=== PATIENT | male | born 1935 | race Caucasian/White ===

== ENCOUNTER 2020-11-08 12:08 | Emergency (ER) | payer MEDICARE, OTHER ==
--- NOTE | 2020-11-08 12:50 | EDM.PDOC ---
ED HPI GENERAL MEDICAL PROBLEM - General Chief Complaint: General Stated Complaint: SYNCOPE Time Seen by Provider: 11/08/20 12:46 Source of Information: Reports: Patient, Family (spouse) History Limitations: Reports: Physical Impairment - History of Present Illness INITIAL COMMENTS - FREE TEXT/NARRATIVE: 85-year-old male presents to the ED in the accompaniment of his and jak kyle. They are concerned due to his generalized decline in level of function over the last several months. They estimate he is lost 20 pounds of weight over the last 3 months. Poor appetite. Legs seem to be getting weaker. He is experiencing a combination of what I believed to be orthostatic hypotension as he gets dizzy lightheaded particularly when sitting up and trying to get out of bed. He then becomes dizzy lightheaded and vertiginous when walking down the hallway and bumps into the wall. Usually gets around with a cane in the house. He does have a walker but rarely uses it as the doors are fairly narrow and it is difficult to navigate with the walker in the house. He denies any nausea or vomiting. His only medication is Flomax 0.4 mg once daily which he takes in the morning for his prostate. It could also of course work as an alpha-cody and drop his blood pressure. No other medications have been utilized. He has not fallen per se. He had a bad fall 2 years ago down the basement stairs but no falls on the last several of months. He leans up against the wall until the dizzy spell dissipates. He does not wear hearing aids but is very hard of hearing. He is alert oriented and answers in a very quiet voice. He answers all questions appropriately. Onset: Gradual, Unknown/Unsure (Symptoms been coming and going off and on for the last 2 to 3 weeks where he will become I believe vertiginous while walking down the hallway and bumped into a wall. He is also lightheaded dizzy upon his assuming the standing position from the sitting or lying down position suggesting orthostatic h) Duration: Week(s):, Chronic, Getting Worse Location: Reports: Generalized (Generalized sense of vertigo and lightheadedness and dizziness that the can occur at any time. The does not appreciate that he is worse in the morning after taking his tamsulosin.) Quality: Reports: Other (Weakness in the lower extremities with loss of balance and what I interpret as a vertigo with a component of orthostatic hypotension as well.) Severity: Moderate Improves with: Reports: Rest Worsens with: Reports: Movement Context: Denies: Activity, Exercise, Lifting, Sick Contact, Trauma, Other Associated Symptoms: Reports: Cough, Loss of Appetite (20 pound weight loss), Malaise, Weakness. Denies: No Other Symptoms (Symptoms have occurred with movement.), Confusion (Cough), Chest Pain, cough w sputum, Diaphoresis, Fever/Chills, Headaches, Nausea/Vomiting, Rash, Seizure, Shortness of Breath, Syncope Treatments [employer]: Reports: Other (see below) (Rarely uses Tylenol.) - Related Data Allergies Allergy/AdvReac Type Severity Reaction Status Date / Time No Known Allergies Allergy Verified 06/20/18 18:55 Home Meds: Home Meds Tamsulosin [Flomax] 0.4 mg PO DAILY 06/17/18 [History] Dutasteride [Avodart] 0.5 mg PO DAILY #30 cap 11/08/20 [Rx] Past Medical History HEENT History: Reports: Hard of Hearing (Not wear hearing aids.), Macular Degeneration Cardiovascular History: Reports: SOB on Exertion Gastrointestinal History: Reports: GERD Genitourinary History: Reports: Other (See Below) Other Genitourinary History: enlarged prostate Oncologic (Cancer) History: Reports: Other (See Below) Other Oncologic History: skin - Past Surgical History HEENT Surgical History: Reports: Cataract Surgery, Tonsillectomy GI Surgical History: Reports: Hernia Repair/Other Male Surgical History: Reports: Other (See Below) Other Male Surgeries/Procedures: enlarged prostate Dermatological Surgical History: Reports: Skin Graft Social & Family History - Tobacco Use Tobacco Use Status *Q: Never Tobacco User - Caffeine Use Caffeine Use: Reports: Coffee, Soda - Recreational Drug Use Recreational Drug Use: No - Living Situation & Occupation Living situation: Reports: Occupation: Retired ED ROS GENERAL - Review of Systems Review Of Systems: See Below Constitutional: Reports: Malaise, Weakness, Fatigue, Decreased Appetite (20 pounds reported by the over the last 3 months), Weight Loss (Estimated 20 pound weight loss over the last 3 months.). Denies: Fever, Chills HEENT: Reports: Hearing Loss Respiratory: Reports: Shortness of Breath. Denies: Wheezing, Pleuritic Chest Pain, Cough, Sputum Cardiovascular: Reports: Dyspnea on Exertion, Lightheadedness (Combination of vertigo and orthostatic hypotension by history). 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 Denies: Confusion, Headache, Numbness, Pre-Existing Deficit, Seizure, Syncope, Tingling, Tremors, Trouble Speaking, Change in Speech ( Especially lower extremities) Psychiatric: Reports: No Symptoms Hematologic/Lymphatic: Reports: No Symptoms Immunologic: Reports: No Symptoms ED EXAM, GENERAL - Physical Exam Exam: See Below Exam Limited By: No Limitations General Appearance: Alert, WD/WN, No Apparent Distress, Other (Patient has had previous blepharoplasty. Temperature is 36.6 degrees. Heart rate is 77 and sinus respiratory is 20 with O2 sats of 98% on room air BP 130/77) Eye Exam: Bilateral Eye: Normal Inspection, PERRL (No blepharal pallor or scleral icterus.) Ears: Other (Is a fair amount of dry crumbly cerumen in both ear canals and I can only visualize a very small portion of the tympanic membrane which looks normal. It could be causing some vertigo symptoms and will be irrigated out.) Throat/Mouth: Other (Tongue is mildly dry and coated. He has had previous tonsillectomy.) Head: Atraumatic ( No oropharyngeal erythema), Normocephalic, Other Neck: Normal Inspection, Limited Range of Motion (No outward signs of head or neck trauma. Limited), Tender Lateral ( lateral rotation and flexion of his neck due to osteoarthritic change. Crepitus present on exam). No: Supple, Non- Tender, Full Range of Motion, Carotid Bruit, Lymphadenopathy (L), Lymphadenopathy (R) Respiratory/Chest: No Respiratory Distress, Lungs Clear, Normal Breath Sounds, No Accessory Muscle Use, Decreased Breath Sounds (Breath sounds are diminished to the lower 30% lung washburn bilaterally without adventitial sounds.) Cardiovascular: Regular Rate, Rhythm, No Edema, No Gallop, No Murmur, No Rub. No: Normal Peripheral Pulses Peripheral Pulses: 1+: Posterior Tibial (L), Posterior Tibial (R), Dorsalis Pedis (L), Dorsalis Pedis (R), 2+: Carotid (L), Carotid (R) GI/Abdominal: Normal Bowel Sounds, Soft, Non-Tender, No Organomegaly, No Mass, Pelvis Stable (Male) Exam: Hernia (She has a large right-sided inguinal hernia that sometimes will travel all the way down into the scrotum. At present it is not painful and does not contain bowel sounds.) Back Exam: Decreased Range of Motion, Other. No: CVA Tenderness (L), CVA Tenderness (R) Extremities: Joint Swelling (Knees are deformed due to osteoarthritic changes. He has very limited external and internal rotation of either hip can put with severe arthritis in his hips.), Other (He does exhibit atrophy of the musculatur e of his lowers extremities.). No: Pedal Edema Neurological: Alert, Oriented, CN II-XII Intact, Normal Cognition Psychiatric: Flat Affect Skin Exam: Warm, Dry, Intact, Normal Color, No Rash #1 Interpretation EKG Date: 11/08/20 Time: 13:17 Rhythm: NSR Rate (Beats/Min): 68 Aguirre: Normal P-Wave: Present QRS: Other (Early R wave transition V2 consider right ventricular perjury versus septal hypertrophy pattern.) ST-T: Other (Diffuse early repolarization pattern which skews the ST segment V4 to V6 slightly upwards but there is no true ischemia. Nonspecific T wave flattening aVL) EKG Interpretation Comments: Borderline ECG Course - Vital Signs Last Recorded V/S: Last Vital Signs Temp 36.6 C 11/08/20 12:23 Pulse 77 11/08/20 12:23 Resp 20 11/08/20 12:23 BP 130/77 11/08/20 12:23 Pulse Ox 98 11/08/20 12:23 Orthostatic Blood Pressure [ 87/52 Standing] Orthostatic Blood Pressure [ 113/56 Sitting] Orthostatic Blood Pressure [ 105/49 Supine] - Orders/Labs/Meds Orders: Active Orders 24 hr Category Date Time Status EKG Documentation Completion [RC] STAT Care 11/08/20 12:47 Active Ear Irrigation [RC] ASDIRECTED Care 11/08/20 12:49 Active Orthostatic Vital Signs [RC] ASDIRECTED Care 11/08/20 12:46 Active URINALYSIS W/MICROSCOPIC [UA W/MICROSCOPIC] [URIN] Stat Lab 11/08/20 16:08 Received Dextrose 5%-0.9% NaCl [Dextrose 5%-Normal Saline] 1,000 Med 11/08/20 13:00 Active ml IV ASDIRECTED Medication Orders Dextrose/Sodium Chloride (Dextrose 5%-Normal Saline) 1,000 mls @ 100 mls/hr IV ASDIRECTED MICHAEL Last Admin: 11/08/20 13:15 Dose: 100 mls/hr Documented by: BARRY Labs: Laboratory Tests 11/08/20 11/08/20 11/08/20 Range/Units 13:02 13:02 13:02 WBC 5.33 (4.23-9.07) K/mm3 RBC 4.16 L (4.63-6.08) M/mm3 Hgb 13.3 L (13.7-17.5) gm/dl Hct 40.8 (40.1-51.0) % MCV 98.1 H D (79.0-92.2) fl MCH 32.0 (25.7-32.2) pg MCHC 32.6 (32.2-35.5) g/dl RDW Std Deviation 47.4 H (35.1-43.9) fL Plt Count 269 (163-337) K/mm3 MPV 9.8 (9.4-12.3) fl Neut % (Auto) 68.6 H (34.0-67.9) % Lymph % (Auto) 20.5 L (21.8-53.1) % Armstrong % (Auto) 8.6 (5.3-12.2) % Eos % (Auto) 1.3 (0.8-7.0) Baso % (Auto) 0.8 (0.1-1.2) % Neut # (Auto) 3.66 (1.78-5.38) K/mm3 Lymph # (Auto) 1.09 L (1.32-3.57) K/mm3 Armstrong # (Auto) 0.46 (0.30-0.82) K/mm3 Eos # (Auto) 0.07 (0.04-0.54) K/mm3 Baso # (Auto) 0.04 (0.01-0.08) K/mm3 Sodium 143 (136-145) mEq/L Potassium 3.9 (3.5-5.1) mEq/L Chloride 105 (98-107) mEq/L Carbon Dioxide 30 (21-32) mEq/L Anion Gap 11.9 (5-15) BUN 17 (7-18) mg/dL Creatinine 1.0 (0.7-1.3) mg/dL Est Cr Clr Drug Dosing 45.27 mL/min Estimated GFR (MDRD) > 60 (>60) mL/min BUN/Creatinine Ratio 17.0 (14-18) Glucose 147 H (83-115) mg/dL Calcium 8.8 (8.5-10.1) mg/dL Magnesium 2.0 (1.8-2.4) mg/dl Total Bilirubin 0.7 (0.2-1.0) mg/dL AST 15 (15-37) U/L ALT 19 (16-63) U/L Alkaline Phosphatase 46 (46-116) U/L Troponin I < 0.017 (0.00-0.056) ng/mL C-Reactive Protein < 0.2 (<1.0) mg/dL NT-Pro-B Natriuret Pep 246 (0-450) pg/mL Total Protein 6.8 (6.4-8.2) g/dl Albumin 3.5 (3.4-5.0) g/dl Globulin 3.3 gm/dL Albumin/Globulin Ratio 1.1 (1-2) TSH 3rd Generation 0.872 (0.358-3.74) uIU/mL Meds: Medications Generic Name Dose Route Start Last Admin Trade Name Freq PRN Reason Stop Dose Admin Dextrose/Sodium Chloride 1,000 mls @ 100 mls/hr 11/08/20 13:00 11/08/20 13:15 Dextrose 5%-Normal Saline IV 100 mls/hr ASDIRECTED MICHAEL Administration - Radiology Interpretation Free Text/Narrative:: 5-year-old male presents to the ED for evaluation of generalized weakness in the lower extremities. Associated I believe combination of vertigo and orthostatic hypotension changes making him dizzy and prone to falling. He has not fallen but his is very concerned this is what is going to happen. He does have quite a bit of earwax. It will be washed or irrigated out. Routine labs ECG chest x-ray to be done. Patient has significant osteoarthritic changes in both hips and both knees which would limit his mobility at the best of times. - Re-Assessments/Exams Free Text/Narrative Re-Assessment/Exam: 11/08/20 13:24 CXR reveals heart size is slightly enlarged. Tortuous thoracic aorta appreciated. Lungs are clear with no acute parenchymal changes. Barium is seen within the colon which is from previous esophagram study done 06 November this year. 11/08/20 14:31 White count is 5.33 with 68.6% neutrophils on the auto differential. Hemoglobin is 13.3 with hematocrit of 40.8. MCV is elevated at 98.1. Platelet count 269,000.. Sodium 143 with a potassium of 3.9. Chloride 105 with a bicarb of 30. Anion gap is 11.9. BUN is 17 with a creatinine of 1.0 and a GFR greater than 60. Glucose is 147. Calcium is 8.8 with a magnesium of 2.0 liver function is normal troponin I is less than 0.017 C-reactive protein less than 0.2 BNP minimally elevated at 246. Total protein is 6.8 with an albumin fraction of 3.5 TSH is 0.872 normal. 11/08/20 15:30 Orthostatic blood pressures have finally been done in this patient. Supine his BP is 105/49 with a heart rate of 81. Sitting his blood pressure is 113/56 with a heart rate of 88 and standing his blood pressure drops to 87/52 with a heart rate of 86. Therefore the alpha-cody component in his tamsulosin is likely contributing to this. This is the only medication that he is on at present. It is likely symptoms have stopped started since he is lost 20 pounds of weight over the last 3 months. 11/08/20 15:31 I have discussed the findings with the family. He is well hydrated. Therefore the only reason for him to be having orthostatic hypotension causing dizziness lightheadedness and propensity to fall is from Flomax. Plan will be to switch him to Avodart 0.5 mg once daily and discontinue the Flomax. He has an appointment to follow-up with Dr. Tyler early next week I believe Thursday at which time orthostatic blood pressures will be reviewed. He did not take his tamsulosin this morning which should give his 4 days of off of medicatio Departure - Departure Time of Disposition: 16:19 Disposition: Home, Self-Care 01 Condition: Fair Clinical Impression: Orthostatic hypotension, Impacted cerumen of both ears Adverse effects of medication Qualifiers: Encounter type: initial encounter Qualified Code(s): T50.905A - Adverse effect of unspecified drugs, medicaments and biological substances, initial encounter - Discharge Information *PRESCRIPTION DRUG MONITORING PROGRAM REVIEWED*: Not Applicable *COPY OF PRESCRIPTION DRUG MONITORING REPORT IN PATIENT PEG: Not Applicable Prescriptions: Dutasteride [Avodart] 0.5 mg PO DAILY #30 cap Instructions: Orthostatic Hypotension Referrals: Herbert Shaw MD [Primary Care Provider] - Forms: ED Department Discharge Additional Instructions: Evaluation in the emergency room today in regards to persistent feelings of dizziness lightheadedness and propensity to fall. There appears to be a component of vertigo which means a sense of feeling off kilter or off balance with a swimming vision or the room spinning which we call vertigo .And have a lot of earwax in both eardrums which was irrigated from your ears while in the ED. Sometimes earwax pushing on the eardrum can cause vertigo symptoms. Other symptoms you expressed to me are changes in position from lying or sitting to a standing position makes you dizzy lightheaded which we call orthostatic hypotension. This means gravity winds when you stand up and blood pressure falls to your socks making you lightheaded and dizzy. This is being aggravated by current medication tamsulosin or Flomax being used to treat your prostate gland enlargement. All of your lab work done today was essentially completely normal. Therefore decision made to stop the Flomax and replace it with a medication called Avodart 0.5 mg once daily. Please follow-up with Dr. Juan Su early next week as planned to check on your blood pressure kilter is swimm ing sensation which comes from the labyrinth with in each middle ear cavity. Sometimes this can go on the blank with age or with inflammation. Sometimes earwax pushing on the eardrums Sepsis Event Note (ED) - Evaluation Sepsis Screening Result: No Definite Risk - Focused Exam Vital Signs: Vital Signs Temp Pulse Resp BP Pulse Ox 11/08/20 12:23 36.6 C 77 20 130/77 98 - My Orders Last 24 Hours: My Active Orders 11/08/20 12:46 Orthostatic Vital Signs [RC] ASDIRECTED 11/08/20 12:47 EKG Documentation Completion [RC] STAT 11/08/20 12:49 Ear Irrigation [RC] ASDIRECTED 11/08/20 13:00 Dextrose 5%-0.9% NaCl [Dextrose 5%-Normal Saline] 1,000 ml IV ASDIRECTED 11/08/20 16:08 URINALYSIS W/MICROSCOPIC [UA W/MICROSCOPIC] [URIN] Stat - Assessment/Plan Last 24 Hours: My Active Orders 11/08/20 12:46 Orthostatic Vital Signs [RC] ASDIRECTED 11/08/20 12:47 EKG Documentation Completion [RC] STAT 11/08/20 12:49 Ear Irrigation [RC] ASDIRECTED 11/08/20 13:00 Dextrose 5%-0.9% NaCl [Dextrose 5%-Normal Saline] 1,000 ml IV ASDIRECTED 11/08/20 16:08 URINALYSIS W/MICROSCOPIC [UA W/MICROSCOPIC] [URIN] Stat
[2020-11-08] MEDS ORDERED: Dextrose 5%-0.9% NaCl 1,000 ML IV SCH (13:00)
--- NOTE | 2020-11-08 13:15 | CR ---
Chest: Portable view of the chest was obtained. Comparison: Prior chest x-ray of 06/20/18. Heart size is slightly enlarged. Tortuous thoracic aorta is noted. Lungs are clear with no acute parenchymal change. Barium is seen within the colon which is from previous esophagram study of 11/06/20. Impression: 1. Barium within the colon from prior esophagram of 11/06/20. 2. Slight cardiomegaly. 3. Nothing acute is otherwise seen. Diagnostic code #2
[2020-11-08 17:33] VITALS: BP 116/70; PULSE 82
== END 2020-11-08 16:40 | disposition home or self-care (01) ==
LOC: JD.ED 12:08
DX: I95.1 Orthostatic hypotension (principal); T50.905A Adverse effect of unspecified drugs, medicaments and biological substances, initial encounter; H61.23 Impacted cerumen, bilateral; Z79.899 Other long term (current) drug therapy
CPT/HCPCS: 36415; 71045; 80053; 81001; 83735; 83880; 84443; 84484; 85025; 86140; 93005; 99284; J7042; 93010

== ENCOUNTER 2021-03-07 06:55 | Observation (INO) | payer MEDICARE ==
[~2021-03-07 06:55] MED LIST: Lactated Ringers 1,000 ML IV SCH; Lidocaine 1%/Sod Bicarbonate in NS 8.4% 1 ML Syringe IDERM PRN; Sodium Chloride 0.9% 10 ML Syringe FLUSH PRN
[2021-03-07] MEDS ORDERED: Bupivacaine 0.5%/EPINEPHrine 1:200,000 50 ML MDV ONE (07:04)
--- NOTE | 2021-03-07 07:22 | PCM.PREANE ---
Preanesthetic Assessment - Procedure Proposed Procedure: Right inguinal hernia repair - Anesthesia/Transfusion/Family Hx Anesthesia History: Prior Anesthesia Without Reaction Family History of Anesthesia Reaction: No Transfusion History: Prior Transfusion Without Reaction - Review of Systems General: Weakness, Other (fragile) Pulmonary: No Symptoms, Shortness of Breath ("at the moment no") Cardiovascular: Dyspnea on Exertion Gastrointestinal: No Symptoms Neurological: Difficulty Walking (cane) Other: Reports: Easy Bruising, Neck Pain ("tight") - Physical Assessment NPO Status Date: 03/06/21 NPO Status Time: 00:00 Height: 1.65 m Weight: 58.7 kg ASA Class: 3 Mental Status: Alert & Oriented x3 Airway Class: Mallampati = 3 Dentition: Reports: Dentures, Partial, Missing Tooth/Teeth Thyro-Mental Finger Breadths: 2 Mouth Opening Finger Breadths: 2 ROM/Head Extension: Other (C1 cervical fracture) Lungs: Clear to Auscultation, Normal Respiratory Effort, Decreased Breath Sounds Cardiovascular: Regular Rate, Regular Rhythm - Imaging/EKG Impressions: EKG SR rate 68 - Allergies Allergies/Adverse Reactions: Allergies Allergy/AdvReac Type Severity Reaction Status Date / Time No Known Allergies Allergy Verified 03/06/21 08:50 - Blood Blood Available: No Product(s) Available: None - Anesthesia Plan Pre-Op Medication Ordered: None - Acknowledgements Anesthesia Type Planned: General Anesthesia Pt an Appropriate Candidate for the Planned Anesthesia: Yes Alternatives and Risks of Anesthesia Discussed w Pt/Guardian: Yes Pt/Guardian Understands and Agrees with Anesthesia Plan: Yes PreAnesthesia Questionnaire HEENT History: Reports: Cataract, Hard of Hearing, Macular Degeneration, Other (See Below) Other HEENT History: WEARS GLASSES, HAS DENTURES Cardiovascular History: Reports: SOB on Exertion, Other (See Below) Other Cardiovascular History: HYPOTENSION Respiratory History: Reports: None Gastrointestinal History: Reports: GERD, Other (See Below) Other Gastrointestinal History: RIGHT INGUINAL HERNIA, CHOLECYSTITIS, PROTEIN CALORIE MALNUTRITION Genitourinary History: Reports: BPH, Other (See Below) Other Genitourinary History: enlarged prostate 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 Musculoskeletal History: Reports: None Neurological History: Reports: None Psychiatric History: Reports: None Endocrine/Metabolic History: Reports: None Hematologic History: Reports: None Immunologic History: Reports: None Oncologic (Cancer) History: Reports: None, Other (See Below) Other Oncologic History: skin Dermatologic History: Reports: None - Past Surgical History Head Surgeries/Procedures: Reports: None HEENT Surgical History: Reports: Cataract Surgery, Tonsillectomy Cardiovascular Surgical History: Reports: None Respiratory Surgical History: Reports: None GI Surgical History: Reports: Hernia Repair/Other Female Surgical History: Reports: None Male Surgical History: Reports: None Endocrine Surgical History: Reports: None Neurological Surgical History: Reports: None Musculoskeletal Surgical History: Reports: None Dermatological Surgical History: Reports: None, Skin Graft - SUBSTANCE USE Tobacco Use Status *Q: Former Tobacco User Second Hand Smoke Exposure: No Days Per Week of Alcohol Use: 0 Number of Drinks Per Day: 0 Total Drinks Per Week: 0 Recreational Drug Use History: No - HOME MEDS Home Medications: Home Meds Dutasteride [Avodart] 0.5 mg PO DAILY #30 cap 11/08/20 [Rx] Donepezil HCl [Aricept] 10 mg PO DAILY 03/06/21 [History] Lansoprazole [Prevacid] 30 mg PO DAILY 03/06/21 [History] Multivitamin 1 tab PO DAILY 03/06/21 [History] Pimavanserin Tartrate [Nuplazid] 34 mg PO DAILY 03/06/21 [History] - CURRENT (IN HOUSE) MEDS Current Meds: Current Medications Lactated Ringer's (Ringers, Lactated) 1,000 mls @ 125 mls/hr IV ASDIRECTED MICHAEL Stop: 03/07/21 23:00 Lidocaine/Sodium Bicarbonate (Lidocaine 1%/Sod Bicarbonate In Ns 8.4% 1 Ml Syringe) 0.25 ml IDERM ONETIME PRN PRN Reason: Prior to IV Start Stop: 03/07/21 18:00 Sodium Chloride (Sodium Chloride 0.9% 10 Ml Syringe) 10 ml FLUSH ASDIRECTED PRN PRN Reason: Keep Vein Open Stop: 03/07/21 18:00 Discontinued Medications Bupivacaine HCl/Epinephrine Bitart (Bupivacaine 0.5%/Epinephrine 1:200,000 50 Ml Mdv) Confirm Administered Dose 50 ml .ROUTE .STK-MED ONE Stop: 03/07/21 07:05
[2021-03-07] MEDS ORDERED: Ondansetron 4 MG/2 ML SDV ONE (07:42)
[2021-03-07] MEDS ORDERED: Rocuronium 50 MG/5 ML Vial ONE (07:42)
[2021-03-07] MEDS ORDERED: Lidocaine 1% 2 ML ONE (07:43)
[2021-03-07] MEDS ORDERED: fentaNYL 100 MCG/2 ML SDV ONE (07:43)
[2021-03-07] MEDS ORDERED: Propofol 200 MG/20 ML SDV ONE (07:43)
[2021-03-07] MEDS ORDERED: ceFAZolin 1 GM Vial ONE (07:43)
--- NOTE | 2021-03-07 09:52 | PCM.PRNOTE ---
- Free Text/Narrative Note: Date: 03/07/2021 Operation: open right inguinal hernia repair Surgeon: Aleksandar Avendano MD EBL: 10 cc Antibiotic: 2 g ancef IV pre-op Findings: moderately large right inguinal hernia, reducible. Detailed Report: The patient was taken to the operating room and placed on the table in supine position. Timeout was performed and general endotracheal anesthesia was initiated. Hair was clipped from the right groin, and the abdomen was prepped and draped in usual sterile fashion after placement of a Nassar catheter to decompress the bladder. 20 cc of 0.5% Marcaine with epinephrine was injected intradermally and in the subcutaneous tissue along the projection of the inguinal ligament between the ASIS and the right pubic tubercle. A 7 cm incision along this projection was made with a scalpel, and dissection was carried down through subcutaneous fat to the external oblique aponeurosis using the monopolar electrode. We linear retractors were placed to aid in exposure. The external inguinal ring was identified. An additional 10 cc of local anesthetic was injected just deep to the aponeurotic fibers which created the roof of the inguinal canal. A stab incision was made with a 15 blade scalpel and underlying tissue was bluntly from the aponeurotic fibers. The roof of the inguinal canal was opened proximally and distally with scissors. Blunt dissection was used to free up the peritoneal sac from surrounding cremasteric fibers. 1/4 inch Lemont drain was passed around the spermatic cord and hernia at the level of the pubic tubercle. Careful dissection proceeded in order to separate the hernia sac from surrounding tissue. The hernia sac was entered and the contents of the abdominal cavity could be palpated with a finger proximally. The distal end of the sac was identified and from surrounding tissue. During this phase of dissection, a very small artery was t ransected; this appeared to be supplying the right testicle. There was very little bleeding after transection but this was ligated with suture. The hernia sac was suture-ligated near the level of the internal ring and the distal aspect of the sac was amputated. Next, a 9 x 15 cm piece of progrip mesh was introduced into the field. This was cut to size and shape and an anchoring stitch was placed at the inferomedial aspect at Jh's ligament. There was good medial and inferior overlap. The inferolateral aspect of the mesh was sutured to the shelving edge of the inguinal ligament with running Prolene suture. A slit was cut in the mesh in order to permit passage of the spermatic cord. The medial aspect of the mesh was laid flat over the internal oblique muscle and a single tacking stitch was placed to keep the mesh flat. The leaflets of the mesh were sutured together to recreate the internal ring, snug but not too tight around the spermatic cord. With the mesh lying flat, the external oblique aponeurosis was closed with running 3-0 Vicryl suture. Dali's fascia was closed with a few interrupted Vicryl sutures and skin was closed with running subcuticular Vicryl suture. Dermabond was applied as a dressing. A total of 40 cc 0.5% Marcaine with epinephrine was used throughout the case. The patient tolerated the procedure well and the right testicle was palpated in the scrotum at the end of the case.
--- NOTE | 2021-03-07 09:53 | PCM.POSTAN ---
POST ANESTHESIA ASSESSMENT - MENTAL STATUS Mental Status: Alert, Oriented - VITAL SIGNS Vital Signs: Last Vital Signs Temp 37.3 C 03/07/21 07:05 Pulse 77 03/07/21 07:05 Resp 14 03/07/21 07:05 BP 129/62 03/07/21 07:05 Pulse Ox 100 03/07/21 07:05 - RESPIRATORY Respiratory Status: Respiratory Rate WNL, Airway Patent, O2 Saturation Stable, Supplemental Oxygen - CARDIOVASCULAR CV Status: Pulse Rate WNL, Blood Pressure Stable - GASTROINTESTINAL GI Status: No Symptoms - PAIN Pain Score: 0 - POST OP HYDRATION Hydration Status: Adequate & Stable - OBSERVATIONS Free Text/Narrative:: no anesthesia complications noted
--- NOTE | 2021-03-07 10:40 | PCM48HPAN ---
Post Anesthesia Note - EVALUATION WITHIN 48HRS OF ANESTHETIC Vital Signs in Normal Range: Yes Patient Participated in Evaluation: Yes Respiratory Function Stable: Yes Airway Patent: Yes Cardiovascular Function Stable: Yes Hydration Status Stable: Yes Pain Control Satisfactory: Yes Nausea and Vomiting Control Satisfactory: Yes Mental Status Recovered: Yes Vital Signs: Last Vital Signs Temp 37.1 C 03/07/21 10:25 Pulse 100 03/07/21 10:25 Resp 13 03/07/21 10:25 BP 92/42 L 03/07/21 10:25 Pulse Ox 93 L 03/07/21 10:25 - COMMENTS/OBSERVATIONS Free Text/Narrative:: no anesthesia complications noted
[2021-03-07] MEDS: Ketorolac 15 MG/ML SDV IVPUSH SCH ×2 (14:48→18:25)
[2021-03-07] MEDS: Acetaminophen 325 MG Tab PO SCH ×2 (14:48→18:25)
[2021-03-08] MEDS: Ketorolac 15 MG/ML SDV IVPUSH SCH ×3 (01:49→08:56)
[2021-03-08] MEDS: Acetaminophen 325 MG Tab PO SCH ×3 (01:49→08:56)
--- NOTE | 2021-03-08 08:40 | PCM.DCSUM1 ---
Discharge Summary - Hospital Course Free Text/Narrative:: Mr. Mendoza underwent elective right inguinal hernia repair yesterday. The operation was completed without complication, and he was kept in the hospital for overnight observation as planned given his frailty. He did fine overnight with no issues and good pain control. He was able to void without a problem after removal of langley catheter after the operation was completed. Diagnosis: Stroke: No - Discharge Data Discharge Date: 03/08/21 Discharge Disposition: Home, Self-Care 01 Condition: Good - Referral to Home Health Primary Care Physician: Herbert Shaw MD - Patient Summary/Data Operative Procedure(s) Performed: open right inguinal hernia repair - Patient Instructions Diet: Usual Diet as Tolerated Activity: No Lifting Over 10 Pounds Showering/Bathing: May Shower, No Tub Bathing/Swimming Wound/Incision Care: Keep Operative Site/Wound Site Clean and Dry Notify Provider of: Fever, Increased Pain, Swelling and Redness, Drainage - Discharge Plan *PRESCRIPTION DRUG MONITORING PROGRAM REVIEWED*: Not Applicable *COPY OF PRESCRIPTION DRUG MONITORING REPORT IN PATIENT PEG: Not Applicable Home Medications: Home Meds Dutasteride [Avodart] 0.5 mg PO DAILY #30 cap 11/08/20 [Rx] Lansoprazole [Prevacid] 30 mg PO DAILY PRN 03/06/21 [History] Multivitamin 1 tab PO DAILY 03/06/21 [History] Oxygen Therapy Mode: Room Air Patient Handouts: Open Hernia Repair, Adult, Care After - Discharge Summary/Plan Comment DC Time >30 min.: No Total # of Minutes for Discharge Time: 20 - Patient Data Vitals - Most Recent: Last Vital Signs Temp 36.6 C 03/08/21 01:46 Pulse 72 03/08/21 01:46 Resp 16 03/08/21 01:46 BP 100/68 03/08/21 01:46 Pulse Ox 96 03/08/21 01:46 Weight - Most Recent: 58.7 kg Med Orders - Current: Current Medications Acetaminophen (Acetaminophen 325 Mg Tab) 975 mg PO Q8H [facility] Last Admin: 03/08/21 08:36 Dose: 975 mg Documented by: Donepezil HCl (Donepezil 10 Mg Tab) 10 mg PO DAILY [facility] Ketorolac Tromethamine (Ketorolac 15 Mg/Ml Sdv) 15 mg IVPUSH Q8H [facility] Last Admin: 03/08/21 08:36 Dose: 15 mg Documented by: Dutasteride 0.5 Pt (Own) 0 each PO DAILY [facility] Pantoprazole Sodium (Pantoprazole 40 Mg Tab.Cr) 40 mg PO DAILY [facility] Last Admin: 03/08/21 08:36 Dose: 40 mg Documented by: Pimavanserin Tartrate [Nuplazid] 34 Mg Capsule 0 each PO DAILY [facility] Discontinued Medications Bupivacaine HCl/Epinephrine Bitart (Bupivacaine 0.5%/Epinephrine 1:200,000 50 Ml Mdv) Confirm Administered Dose 50 ml .ROUTE .STK-MED ONE Stop: 03/07/21 07:05 Last Admin: 03/07/21 08:16 Dose: 40 ml Documented by: Cefazolin Sodium (Cefazolin 1 Gm Vial) Confirm Administered Dose 2 gm .ROUTE .STK-MED ONE Stop: 03/07/21 07:44 Fentanyl (Fentanyl 100 Mcg/2 Ml Sdv) Confirm Administered Dose 100 mcg .ROUTE .STK-MED ONE Stop: 03/07/21 07:44 Lactated Ringer's (Ringers, Lactated) 1,000 mls @ 125 mls/hr IV ASDIRECTED [facility] Stop: 03/07/21 23:00 Last Admin: 03/07/21 07:20 Dose: 125 mls/hr Documented by: Lidocaine HCl (Xylocaine-Mpf 1%) Confirm Administered Dose 2 mls @ as directed .ROUTE .STK-MED ONE Stop: 03/07/21 07:44 Lidocaine/Sodium Bicarbonate (Lidocaine 1%/Sod Bicarbonate In Ns 8.4% 1 Ml Syringe) 0.25 ml IDERM ONETIME PRN PRN Reason: Prior to IV Start Stop: 03/07/21 18:00 Last Admin: 03/07/21 07:20 Dose: 0.25 ml Documented by: Miscellaneous Medication (Phenylephrine Hcl In 0.9% Nacl 1 Mg/10 Ml Syringe) Confirm Administered Dose 1 mg .ROUTE .STK-MED ONE Stop: 03/07/21 08:04 Miscellaneous Medication (Phenylephrine Hcl In 0.9% Nacl 1 Mg/10 Ml Syringe) Confirm Administered Dose 1 mg .ROUTE .STK-MED ONE Stop: 03/07/21 09:16 Ondansetron HCl (Ondansetron 4 Mg/2 Ml Sdv) Confirm Administered Dose 0 mg .ROUTE .STK-MED ONE Stop: 03/07/21 07:43 Propofol (Propofol 200 Mg/20 Ml Sdv) Confirm Administered Dose 200 mg .ROUTE .STK-MED ONE Stop: 03/07/21 07:44 Rocuronium Webster (Rocuronium 50 Mg/5 Ml Vial) Confirm Administered Dose 50 mg .ROUTE .STK-MED ONE Stop: 03/07/21 07:43 Sodium Chloride (Sodium Chloride 0.9% 10 Ml Syringe) 10 ml FLUSH ASDIRECTED PRN PRN Reason: Keep Vein Open Stop: 03/07/21 18:00
[2021-03-08 08:44] VITALS: BP 107/66; PULSE 71
[2021-03-08] MEDS ORDERED: Pimavanserin Tartrate [Nuplazid] 34 MG Capsule PO SCH (09:00)
[2021-03-08] MEDS ORDERED: Pantoprazole 40 MG Tab.CR PO SCH (09:00)
[2021-03-08] MEDS ORDERED: DUTASTERIDE PO SCH (09:00)
[2021-03-08] MEDS ORDERED: Donepezil 10 MG Tab PO SCH (09:00)
== END 2021-03-08 09:45 | disposition home or self-care (01) ==
LOC: JD.SDS 06:55 → JD.MS 09:39
PROVIDERS: ADMIT Surgery; ATTEND Surgery
DX: K40.90 Unilateral inguinal hernia, without obstruction or gangrene, not specified as recurrent (principal); I10 Essential (primary) hypertension; Z79.899 Other long term (current) drug therapy; Z98.890 Other specified postprocedural states; Z87.891 Personal history of nicotine dependence
CPT/HCPCS: 00830; 49505; A9270-GY; C1781; G0378; J0690; J1885; J2370; J2405; J2704; J3010; J3490; J7120

== ENCOUNTER 2022-10-24 11:46 | Observation (INO) | payer MEDICARE ==
[2022-10-24 12:51] LABS: ESTIMATED GFR 72 mL/min (>60)
[2022-10-24] MEDS ORDERED: Sodium Chloride 0.9% 1,000 ML IV SCH (13:15)
[2022-10-24] MEDS ORDERED: Sodium Chloride 0.9% 10 ML Syringe FLUSH PRN (13:15)
[2022-10-24] MEDS ORDERED: REMDESIVIR 200 MG in Sodium Chloride 0.9% 250 ML IV ONE ×2 (13:16→14:30)
[2022-10-24] MEDS ORDERED: diphenhydrAMINE 50 MG Cap PO ONE (16:14)
[2022-10-24] MEDS ORDERED: Acetaminophen 325 MG Tab PO ONE (16:14)
[2022-10-24] MEDS ORDERED: diphenhydrAMINE 12.5 MG/5 ML Liquid 5 ML UD Cup PO ONE (16:23)
[2022-10-24] MEDS ORDERED: diphenhydrAMINE 25 MG Cap PO ONE (16:27)
[2022-10-24] MEDS ORDERED: LORazepam 2 MG/ML SDV IVPUSH ONE (17:25)
[2022-10-24] MEDS ORDERED: LORazepam 2 MG/ML SDV ONE (17:25)
[2022-10-24] MEDS ORDERED: Ondansetron 4 MG Tab.DIS PO PRN (17:54)
[2022-10-24] MEDS ORDERED: Docusate Sodium 100 MG Cap PO PRN (17:54)
[2022-10-24] MEDS ORDERED: Acetaminophen 325 MG Tab PO PRN (17:54)
[2022-10-24] MEDS ORDERED: Albuterol/Ipratropium 3.0-0.5 MG/3 ML Neb Soln NEB PRN (17:54)
[2022-10-24] MEDS ORDERED: Ondansetron 4 MG/2 ML SDV IV PRN (17:54)
[2022-10-24] MEDS ORDERED: Dextrose 5%-0.45% NaCl 1,000 ML IV SCH (18:00)
[2022-10-24] MEDS: Heparin Sodium 5,000 Units/ML Vial SUBCUT SCH (18:39)
[2022-10-24] MEDS: methylPREDNISolone Sodium Succinate 40 MG/1 ML SDV IVPUSH SCH (18:39)
[2022-10-25] MEDS: Heparin Sodium 5,000 Units/ML Vial SUBCUT SCH ×2 (01:00→10:02)
[2022-10-25] MEDS: methylPREDNISolone Sodium Succinate 40 MG/1 ML SDV IVPUSH SCH ×2 (01:00→06:44)
[2022-10-25] MEDS ORDERED: Multivitamin Tab PO SCH (09:00)
[2022-10-25] MEDS ORDERED: MAGNESIUM GLYCINATE PO SCH (09:00)
[2022-10-25] MEDS ORDERED: Dutasteride 0.5 MG Cap PO SCH (09:00)
[2022-10-25] MEDS ORDERED: Donepezil 10 MG Tab PO SCH (09:00)
[2022-10-25] MEDS ORDERED: Pimavanserin Tartrate [Nuplazid] 34 MG Capsule PO SCH (09:00)
[2022-10-25] MEDS ORDERED: Carbidopa/Levodopa 25-100 MG Tab PO SCH (12:00)
[2022-10-25 12:28] VITALS: BP 100/53; PULSE 61
== END 2022-10-25 15:15 | disposition home or self-care (01) ==
LOC: JD.ED 11:46 → JD.MS 17:54
PROVIDERS: ADMIT Hospitalist; ATTEND Hospitalist
DX: U07.1 COVID-19 (principal); R53.1 Weakness; G31.83 Neurocognitive disorder with Lewy bodies; Z79.899 Other long term (current) drug therapy; Z98.890 Other specified postprocedural states
CPT/HCPCS: 36415; 71045; 80048; 80053; 85025; 86140; 96361; 96365; 96372; 96375; 96376; 99284; A9270; G0378; J0248; J1644; J2060; J2920; J7030; J7042; J7050; 99222; 99239